=== PATIENT | female | born 1970 | race Caucasian/White ===

== ENCOUNTER 2016-12-21 18:44 | Emergency (ER) | payer OTHER ==
[~2016-12-21] VITALS: Ht 160 cm; Wt 140.0 kg
[2016-12-21 18:55] VITALS: BP 123/80; PULSE 97; RESP 20; O2SAT 100
[2016-12-21 19:43] LABS: APPEARANCE,URINE HAZY (CLEAR,HAZY); COLOR,URINE YELLOW (YELLOW); OCCULT BLOOD,URINE NEGATIVE (NEGATIVE); UROBILINOGEN,URINE NORMAL (NORMAL)
[2016-12-21 19:54] LABS: BASOPHILS % (AUTO) 0.6 % (0-3); EOSINOPHILS % (AUTO) 3.4 % (0-5); MONOCYTES % (AUTO) 14.1 % (4-12); Mean Corpuscular Hemoglobin 29.5 pg (27.0-35.0); Mean Corpuscular Volume 86.2 fL (81-100); NEUTROPHILS % (AUTO) 62.8 % (40-74); Platelet Count 424 bil/L (150-400)
[2016-12-21 20:24] LABS: Magnesium 2.1 mg/dL (1.6-2.6)
--- NOTE | 2016-12-21 21:00 | ED.REPORT ---
HPI-General Illness Date of Service Dec 21, 2016 ED Provider: Dr. Kameron Forbes M.D. A 46 year old female s/p ventral hernia repair with mesh placement (11/2015) and subsequent mesh removal (07/2016) presents to the ED with RUQ abdominal pain onset today. The patient also reports cough, fever (100.8 yesterday), and facial rash. She denies vomiting, diarrhea, decreased appetite, or other symptoms.. The patient has previously had similar symptoms with an infection under the hernia repair mesh before it was removed. Nursing Notes Stated Complaint: HERNIA MESH REMOVAL, HAVING PAIN,SKIN IRRITATED Chief Complaint: General Complaint Nursing Notes Reviewed: Yes Allergies: Coded Allergies: Penicillins (Verified Allergy, Intermediate, hives, 12/21/16) Sulfa (Sulfonamide Antibiotics) (Verified Allergy, Intermediate, hives, ) morphine (Verified Allergy, Intermediate, hives, 12/21/16) erythromycin base (Verified Adverse Reaction, Severe, vomiting, 12/21/16) General Time Seen by MD: 20:58 Chief Complaint Abdominal pain Hx Obtained From: Patient Arrived By: Walk-in Sudden in Onset?: Yes Onset Occurred: 13 - 16 hours ago Symptom Duration: Since onset Location: : Abdomen Quality: Painful Severity: Current: Moderate Severity: Maximum: Moderate Associated with: Reports: Cough, Fever, Rash, Denies: Vomiting Pertinent Negative: Relieved by nothing Context Related History: Reports Hernia Recent Healthcare: No recent doctor visit, Previous surgery Past Medical History Past Medical History Ventral hernia Past Surgical History Hernia repair with mesh placement 11/2015 Hernia mesh removal and fascia repair 07/2016 Smoking History Unknown if Ever Smoker Social History Other Social History: Good social support, From out of town ([place]) Ambulatory Status Independent Review of Systems - Decreased appetite Full Review of Systems Constitutional: Reports: Fever (100.8 yesterday) Respiratory: Reports: Non-productive cough, Denies: Shortness of breath GI: Reports: Abdominal pain (RUQ), Denies: Diarrhea, Vomiting Skin: Reports Rash (Facial) Complete sys rev & neg: except as marked. Physical Exam Vital Signs Vital Signs Date Time Temp Pulse Resp B/P Pulse Ox O2 Delivery O2 Flow Rate FiO2 12/21/16 22:40 98 99/67 96 Room Air 12/21/16 22:35 98 99/67 96 Room Air 12/21/16 18:55 36.2 97 20 123/80 100 Room Air Initial VS: Reviewed Head / Eyes: Atraumatic, Normocephalic ENT: Conjunctiva normal, No scleral icterus Neck: Supple, Full range of motion Respiratory: Breath sounds normal, Clear to auscultation, No respiratory distress Cardiovascular: Regular rate & rhythm, Heart sounds normal Neurologic: Alert, Oriented, Nonfocal Psychiatric: Mood/affect normal, Behavior normal, Normal thought content General/Constitutional: Awake, Alert, No acute distress Abdomen: Soft, No palpable mass Tender along lower margin of ribs No fluctuance or redness Skin: Warm, Dry Excoriations to glabella and upper lip Scarred excoriations to chest and abdomen No other rash Interpretation & Diagnostics Lab Results Interpretation Result Diagram: 12/21/16194312/21/161943 Test 12/21/16 19:00 12/21/16 19:44 Urine Color Yellow (YELLOW) Urine Appearance Hazy (CLEAR,HAZY) Urine pH 6.0 (5.0-8.0) Urine Specific [place] 1.030 (1.003-1.035) Urine Protein Negativemg/dL (NEG,TRACE) Urine Glucose (UA) Negativemg/dL (NEGATIVE) Urine Ketones Negativemg/dL (NEGATIVE) Urine Occult Blood Negative (NEGATIVE) Urine Nitrite Negative (NEGATIVE) Urine Bilirubin Negative (NEGATIVE) Urine Urobilinogen Normalmg/dL (NORMAL) Urine Leukocyte Esterase Negative (NEGATIVE) Urine RBC 0-2/hpf (0-2) Urine WBC 0-5/hpf (0-5) Urine Epithelial Cells Moderate/hpf (NONE-MOD) Urine Crystals None seen (NONE SEEN) Urine Bacteria Few/hpf (NONE-FEW) Urine Hyaline Casts Rare/lpf (NONE) Urine Granular Casts None seen (NONE SEEN) Urine Waxy Casts None seen (NONE SEEN) Urine Red Blood Cell Casts None seen (NONE SEEN) Urine White Blood Cell Casts None seen (NONE SEEN) Urine Mucus Present (None Seen) Urine Trichomonas None seen (NONE SEEN) Urine Yeast None (NONE SEEN) Urinalysis Comment None Urine Culture Reflexed Not indicated White Blood Count 12.2th/mm3 (3.8-10.1) Red Blood Count 5.28mil/mm3 (3.90-5.20) Hemoglobin 15.6g/dL (12.0-15.6) Hematocrit 45.5% (35.0-46.0) Mean Corpuscular Volume 86.2fL (81-100) Mean Corpuscular Hemoglobin 29.5pg (27.0-35.0) Mean Corpuscular Hemoglobin Concent 34.3% (32.0-37.0) Red Cell Distribution Width 14.0% (12.3-15.4) Platelet Count 424bil/L (150-400) Neutrophils (%) (Auto) 62.8% (40-74) Lymphocytes (%) (Auto) 18.7% (14-46) Monocytes (%) (Auto) 14.1% (4-12) Eosinophils (%) (Auto) 3.4% (0-5) Basophils (%) (Auto) 0.6% (0-3) Sodium Level 139mEq/L (134-144) Potassium Level 3.7mEq/L (3.5-5.2) Chloride Level 100mEq/L (97-108) Carbon Dioxide Level 25mmol/L (18-29) Blood Urea Nitrogen 10mg/dL (6-24) Creatinine 0.80mg/dL (0.57-1.00) Estimat Glomerular Filtration Rate 110mL/min (>59) Glucose Level 97mg/dL (60-99) Calcium Level 9.3mg/dL (8.5-10.1) Magnesium Level 2.1mg/dL (1.6-2.6) Total Bilirubin 0.2mg/dL (0.0-1.2) Aspartate Amino Transf (AST/SGOT) 19U/L (0-50) Alanine Aminotransferase (ALT/SGPT) 13U/L (0-32) Alkaline Phosphatase 88U/L (25-150) Total Protein 7.4g/dL (6.4-8.4) Albumin 4.4g/dL (3.4-5.0) Lipase 38U/L (13-60) Hold Aguilar Top Tube Received (Received) CT Abd / Pelvis Interpretation CONCLUSION: No CT evidence of acute intra-abdominal pathology. Transmitted to ED by Darrion Maher M.D. at 12/21/2016 - 10:05:23 PM PST Study type: Abdominal CT IV contrast Interpretation / Wet Read by: Interpret - Radiologist Re-Eval/Medical Decision Med Decision/Clinical Course 46-year-old status post ventral herniorrhaphy of an infection of the mesh and removal, presents with pain along her rib margin that she associates with coughing. Exam is a sleeping benign. She has a negative CT with no evidence of abscess or other abnormality. She complains also of multiple skin lesions and has excoriations on her face that appear to be scaly superinfected neurodermatitis. She is picking at these even despite prompting not to do that. Provided with hydrocortisone ointment 1% for her face. Methamphetamine likely a major etiologic agent (U tox positive for methamphetamine). No urgent pathology found in the abdomen. Referred to primary care physician. Source of Hx: Old records Time of Eval: 21:17 Patient Status: Condition improved Re-Evaluation/Progress Note: Discussed with patient diagnosis, lab results, and plan for CT with probable discharge. Follow-up and return to the ER instructions given. Patient agrees with plan for care and all questions were addressed. Counseled Regarding: Diagnosis, Lab results, Need for follow-up, When/why to return to ED Discharge & Departure Primary Impression: Abdominal pain Abdominal location: upper abdomen Qualified Code: R10.10 - Upper abdominal pain, unspecified Additional Impressions: Neurodermatitis Methamphetamine abuse Disposition: Home Discharge Condition All VS Reviewed: Yes Condition: Improved Patient Instructions: Acute Abdominal Pain (ED) Additional Instructions: We do not see any evidence of serious pathology in the abdomen. The abdominal wall appears intact. I suspect, as you do, that you have strained your muscles with your coughing. You may begin hydrocortisone ointment to the rash on your face, three times daily. You may use Vaseline in the meantime to keep it covered and prevent scale. Follow-up with your doctor in the office. Referrals: OTHER,PHYSICIAN (PCP) (Family) Scribe Attestation Portions of this note were transcribed by Donna Lorenzo. I, Dr. Forbes, personally performed the history, physical exam, and medical decision-making; I reviewed and confirmed the accuracy of the information in the transcribed note. Signed by: Glenda Lange, 12/22/2016, 00:45 Kameron Forbes MD Dec 21, 2016 21:00 DONNA LORENZO Dec 21, 2016 21:14
[2016-12-21 22:35] VITALS: BP 99/67; PULSE 98; O2SAT 96
[2016-12-21 22:40] VITALS: BP 99/67; PULSE 98; O2SAT 96
--- NOTE | 2016-12-22 10:25 | DRSVH ---
PROCEDURE: CT ABDOMEN AND PELVIS WITHOUT CONTRAST ([id number]) INDICATIONS: abdo pain around hernia mesh TECHNIQUE: Noncontrast 5 mm thick sections acquired from the diaphragms to the symphysis. 5 mm coronal and sagi ttal reformats were then performed. For radiation dose reduction, the following was used: automated exposure control, adjustment of mA and/or kV according to patient size. COMPARISON: None. FINDINGS: Image quality: Excellent. ABDOMEN: Lung bases: Lung bases are clear. Heart size is normal. Solid organs: Liver and spleen are normal in size. Gallbladder is contracted. Pancreas is mildly a trophic. No adrenal nodules. Kidneys are normal in size, without hydronephrosis or nephrolithiasis. Peritoneum and bowel: Unenhanced bowel loops demonstrate normal wall thickness and caliber. The appe ndix is thin walled and gas filled. No free fluid or air. Nodes and vessels: No retroperitoneal or mesenteric adenopathy by size criteria. Aorta and inferior vena cava are normal in caliber. There are scattered atheromatous calcifications throughout the aort a and iliac arteries bilaterally. Miscellaneous: There is likely a small fat-containing ventral hernia just inferior to the umbilicus ( series 2, image 42). No bowel herniation. Herniorrhaphy mesh is not visualized. PELVIS: Genitourinary: Bladder wall thickness is normal. Miscellaneous: No inguinal hernias or adenopathy. Bones: No suspicious bony lesions. No vertebral body compression fractures. IMPRESSION: 1. No acute intra-abdominal findings. Normal appendix. 2. Small fat-containing ventral hernia as above. No bowel herniation. Note: The preliminary [facility] interpretation and the final report are concordant. Dictated by: Belkis Samuel M.D. on 12/22/2016 at 10:16 Approved by: Belkis Samuel M.D. on 12/22/2016 at 10:24
== END 2016-12-21 22:41 | disposition home or self-care (01) ==
LOC: SED 18:44
DX: R10.10 Upper abdominal pain, unspecified (principal); L28.0 Lichen simplex chronicus; F15.10 Other stimulant abuse, uncomplicated; Z88.0 Allergy status to penicillin; Z88.1 Allergy status to other antibiotic agents; Z88.2 Allergy status to sulfonamides